=== PATIENT | male | born 1950 | race Caucasian/White ===

== ENCOUNTER → 2018-04-23 | Outpatient (CLI) | payer OTHER | LOC: FIMAGING 13:50 | PROVIDERS: ATTEND Surgery | DX: Z45.2 Encounter for adjustment and management of vascular access device (principal); C25.9 Malignant neoplasm of pancreas, unspecified ==

== ENCOUNTER → 2018-07-06 | Outpatient (CLI) | payer OTHER ==
[~2018-07-06] MED LIST: IOPAMIDOL (ISOVUE 370) 100 ML BTL IV ONE
== END ==
LOC: FIMAGING 11:47
PROVIDERS: ATTEND Internal Medicine Hematology & Oncology
DX: I70.0 Atherosclerosis of aorta (principal); I25.10 Atherosclerotic heart disease of native coronary artery without angina pectoris; C25.1 Malignant neoplasm of body of pancreas; C78.7 Secondary malignant neoplasm of liver and intrahepatic bile duct
CPT/HCPCS: Q9967

== ENCOUNTER → 2018-07-20 | Outpatient (CLI) | payer OTHER | LOC: FIMAGING 10:15 | PROVIDERS: ATTEND Nurse Practitioner | DX: J90 Pleural effusion, not elsewhere classified (principal); D72.829 Elevated white blood cell count, unspecified; C25.1 Malignant neoplasm of body of pancreas ==

== ENCOUNTER → 2019-01-03 | Outpatient (CLI) | payer OTHER | LOC: FIMAGING 11:39 | PROVIDERS: ATTEND Nurse Practitioner | DX: M25.511 Pain in right shoulder (principal); M79.601 Pain in right arm; C78.89 Secondary malignant neoplasm of other digestive organs; Z79.899 Other long term (current) drug therapy ==

== ENCOUNTER → 2019-02-01 | Outpatient (CLI) | payer OTHER | LOC: FLAB 10:10 | PROVIDERS: ATTEND Nurse Practitioner | DX: R05 Cough (principal); C25.1 Malignant neoplasm of body of pancreas ==